=== PATIENT | female | born 1945 | race Caucasian/White ===

== ENCOUNTER → 2018-05-01 16:17 | Outpatient (CLI) | payer MEDICARE, OTHER, SELFPAY | PROVIDERS: Family Provider Family Medicine; Visit Provider Nurse Practitioner Adult Health | DX: R31.9 Hematuria, unspecified (principal) | CPT/HCPCS: 87086; 87088; 87186 ==

== ENCOUNTER → 2019-07-07 17:02 | Outpatient (CLI) | payer MEDICARE, OTHER, SELFPAY ==
--- NOTE | 2019-07-07 | FLU_PTH ---
PATIENT: CHARLOTTE HAY LOC: [facility] U#:[id number] AGE/SX: 80/F ROOM: RE07/07/[address]: Dr. Jabier Hyde MD : 1945 BED: DIS: SPEC #: [id number] RECD: 07/07/19 13:00 STATUS: PRACHI KEITH #: [id number] JACKSON: 07/07/19 00:[address]: Jabier Hyde DEPT: CYTOLOGY RECD BY: Iris Kee ENTERED: 07/08/19 09:09 SP TYPE: Fluid OTHR DR: Dr. Emilee Nicholson MD Tissues: Urine Procedures: Special Stain Group II Surgery Specimen Level IV Cytospin Fluid HEADER OPERATION: Not noted PRE-OP DIAGNOSIS: Bladder cancer TISSUE SUBMITTED: Urine for cytology DIAGNOSIS CYTOLOGY Urine for cytology (cytospin): Negative for malignant cells. Marked acute inflammation. See comment. OPAL:rg 07/09/19 COMMENT Organisms consistent with bacteria are also noted. Correlation with clinical findings and appropriate follow up are necessary. 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 CYTOLOGY STUDY Slides are reviewed. CYTOLOGY GROSS Received is 40 ml of yellow cloudy fluid labeled with the patient's name and and designated per the requisition as urine. Submitted for cytology preparation. /CC:cc 07/08/19 TC:2 CPT: 63265
[2019-07-07 17:24] LABS: Cytology, Body Fluid / CSF SEE PATHOLOGY REPORT
== END ==
PROVIDERS: Family Provider Family Medicine; PCP Family Medicine; Referring Provider Urology; Visit Provider Urology
DX: C67.9 Malignant neoplasm of bladder, unspecified (principal)
CPT/HCPCS: 88108; 88305; 88313

== ENCOUNTER 2020-12-27 10:19 | Outpatient (RCR) | payer MEDICARE, OTHER, SELFPAY ==
[2020-12-27] MEDS: COVID-19 VACC, MRNA(PFIZER)/PF 30 MCG/0.3 ML SYRINGE IM (17:11)
[2021-01-17] MEDS: COVID-19 VACC, MRNA(PFIZER)/PF 30 MCG/0.3 ML SYRINGE IM (17:03)
== END 2021-03-28 23:59 ==
LOC: IMMUN 10:19
PROVIDERS: PCP Internal Medicine; Referring Provider Family Medicine; Visit Provider Family Medicine
DX: Z23 Encounter for immunization (principal)
CPT/HCPCS: 0001A; 0002A; 91300

== ENCOUNTER → 2021-10-02 16:33 | Outpatient (CLI) | payer MEDICARE, OTHER, SELFPAY ==
[2021-10-02 17:12] LABS: Cytology, Body Fluid / CSF SEE PATHOLOGY REPORT
--- NOTE | 2021-10-03 | CYSPIN_PTH ---
PATIENT: CHARLOTTE HAY LOC: [facility] U#:[id number] AGE/SX: 80/F ROOM: RE10/02/[address]: Dr. Jabier Hyde MD : 1945 BED: DIS: SPEC #: [id number] RECD: 10/03/21 10:33 STATUS: PRACHI KEITH #: [id number] JACKSON: 10/03/21 00:[address]: Jabier Hyde DEPT: CYTOLOGY RECD BY: Ziggy Mario ENTERED: 10/03/21 10:33 SP TYPE: CYSPIN FL OTHR DR: Dr. Kim Austin, DO Tissues: Urine Procedures: Pap Stain (control) Special Stain Group II Cytospin Fluid HEADER OPERATION: Not noted PRE-OP DIAGNOSIS: Malignant neoplasm of bladder TISSUE SUBMITTED: Urine for cytology DIAGNOSIS CYTOLOGY Urine for cytology (cytospin): Atypical urothelial cells suspicious for malignancy. AM:benny 10/04/2021 CYTOLOGY STUDY Slides are reviewed. CYTOLOGY GROSS Received is 40 ml of cloudy yellow fluid labeled with the patient's name and and designated per the requisition as urine. Submitted for cytology preparation. / benny 10/03/2021 TC:? CPT: 46050
== END ==
PROVIDERS: PCP Internal Medicine; Visit Provider Urology
DX: Z85.51 Personal history of malignant neoplasm of bladder (principal)
CPT/HCPCS: 88108; 88313

== ENCOUNTER 2022-02-05 16:23 | Outpatient (CLI) | payer OTHER, MEDICARE, SELFPAY ==
--- NOTE | 2022-02-05 10:07 | CYSPIN_PTH ---
PATIENT: CHARLOTTE HAY LOC: [facility] U#:[id number] AGE/SX: 76/F ROOM: RE02/05/[address]: Dr. Jabier Hyde MD : 1945 BED: DIS: 02/05/2022 SPEC #: [id number] RECD: 02/06/22 07:27 STATUS: PRACHI RERigo #: [id number] JACKSON: 02/05/22 10:[address]: Jabier Hyde DEPT: CYTOLOGY RECD BY: Angelika Orourke ENTERED: 02/06/22 07:27 SP TYPE: CYSPIN FL OTHR DR: Dr. Kim Austin, DO Tissues: Urine Procedures: Pap Stain (control) Special Stain Group II Cytospin Fluid HEADER OPERATION: Not noted PRE-OP DIAGNOSIS: Malignant neoplasm of bladder TISSUE SUBMITTED: Urine for cytology DIAGNOSIS CYTOLOGY Urine for cytology (cytospin): A few clusters of atypical urothelial cells noted. Acute inflammation. See comment. SJ:benny 02/06/2022 COMMENT Clinical correlation and appropriate follow up are necessary. Please make reference to previous specimen ([id number]) urine for cytology with diagnosis of ?atypical urothelial cells suspicious for malignancy.? CYTOLOGY STUDY Slides are reviewed. CYTOLOGY GROSS Received is 100 ml of light yellow cloudy fluid labeled with the patient's name and and designated per the requisition as urine. Submitted for cytology preparation. / benny 02/05/2022 TC:5 CPT: 75363
[2022-02-05 16:34] LABS: Cytology, Body Fluid / CSF SEE PATHOLOGY REPORT
== END 2022-02-05 23:59 | disposition home or self-care (01) ==
LOC: LABSPEC 16:27
PROVIDERS: PCP Internal Medicine; Visit Provider Urology
DX: C67.4 Malignant neoplasm of posterior wall of bladder (principal)
CPT/HCPCS: 88108; 88313

== ENCOUNTER → 2023-02-05 | Outpatient (CLI) | payer OTHER, MEDICARE, SELFPAY ==
--- NOTE | 2023-02-05 | CYSPIN_PTH ---
PATIENT: CHAR[facility]TE [facility]AY [id number] AGE/SX: 77/F ROOM: RE02/05/[address]: Dr. Jabier Hyde MD : 1945 BED: DIS: 02/05/2023 SPEC #: [id number] RECD: 02/05/23 15:00 STATUS: PRACHI RERigo #: [id number] JACKSON: 02/05/23 00:[address]: Jabier Hyde DEPT: CYTOLOGY RECD BY: Iris Kee ENTERED: 02/06/23 08:11 SP TYPE: CYSPIN FL OTHR DR: Dr. Kim Austin, DO Tissues: Urine Procedures: Pap Stain (control) Special Stain Group II Cytospin Fluid HEADER OPERATION: Not noted PRE-OP DIAGNOSIS: Malignant neoplasm of bladder TISSUE SUBMITTED: Urine for cytology DIAGNOSIS CYTOLOGY Urine for cytology (cytospin): Mildly atypical urothelial cells noted (AUC), Samina System Category III. SJ:benny 02/06/2023 COMMENT The Samina System for urine cytology diagnostic categorization was used in the evaluation of this case. Please make reference to previous specimen ([id number]) bladder lesion, biopsy with diagnosis of ?papillary urothelial carcinoma.? CYTOLOGY STUDY Slides are reviewed. CYTOLOGY GROSS Received is 60 ml of yellow hazy fluid labeled with the patient's name and and designated per the requisition as urine. Submitted for cytology preparation. / benny 02/06/2023 TC:5 CPT: 41292
[2023-02-05 16:04] LABS: Cytology, Body Fluid / CSF SEE PATHOLOGY REPORT
== END | disposition home or self-care (01) ==
LOC: LABSPEC 15:42
PROVIDERS: PCP Internal Medicine; Referring Provider Urology; Visit Provider Urology
DX: Z85.51 Personal history of malignant neoplasm of bladder (principal)
CPT/HCPCS: 88108; 88313